=== PATIENT | male | born 1975 | race Hispanic/Latino ===

== ENCOUNTER 2017-10-25 13:31 | Inpatient (IN) | payer OTHER ==
[~2017-10-25] VITALS: Ht 182.9 cm; Wt 105.7 kg
[2017-10-25 14:10] LABS: BASOPHILS % 0.2 % (0.0-1.0); EOSINOPHILS % 0.1 % (0.0-6.0); HEMATOCRIT 47.2 % (38.2-49.6); HEMOGLOBIN 16.8 g/dL (14.0-18.0); LYMPHOCYTES # (AUTO) 1.8 (1.0-3.2); LYMPHOCYTES % 11.5 % (18.0-39.1); MEAN CORPUSCULAR HGB CONC 35.6 g/dL (31-35); MEAN CORPUSCULAR VOLUME 84.3 fL (81-99); MONOCYTES # (AUTO) 0.9 (0.2-0.8); NEUTROPHILS # (AUTO) 12.6 (2.1-6.9); NEUTROPHILS % 81.7 % (38.7-80.0); PLATELET COUNT 249 x10e3/uL (140-360); RED CELL DISTRIBUTION WIDTH 12.4 % (11.7-14.4)
[2017-10-25 14:19] LABS: BILIRUBIN,URINE NEGATIVE (NEGATIVE); CLARITY,URINE CLEAR (CLEAR); COLOR,URINE YELLOW (YELLOW); KETONES,URINE NEGATIVE (NEGATIVE); LEUKOCYTE ESTERASE ,URINE NEGATIVE (NEGATIVE); NITRITE,URINE NEGATIVE (NEGATIVE); PROTEIN,URINE DIPSTICK TRACE (NEGATIVE); URINE UROBILINOGEN 0.2 mg/dL (0.2 - 1)
[2017-10-25 14:25] LABS: ALANINE AMINOTRANSFERASE 17 IU/L (0-55); ALBUMIN 4.5 g/dL (3.5-5.0); ALBUMIN/GLOBULIN RATIO 1.2 (0.8-2.0); ALKALINE PHOSPHATASE 69 IU/L (40-150); ANION GAP 14.7 mmol/L (8-16); BLOOD UREA NITROGEN 14 mg/dL (7-26); BUN/CREATININE RATIO 11 (6-25); CALCIUM 10.2 mg/dL (8.4-10.2); CARBON DIOXIDE 25 mmol/L (22-29); CHLORIDE 103 mmol/L (98-107); CREATININE, SERUM 1.23 mg/dL (0.72-1.25); EST GLOMERULAR FILTRATION RATE > 60 ML/MIN (60-); GLUCOSE 117 mg/dL (74-118); POTASSIUM 3.7 mmol/L (3.5-5.1); SODIUM 139 mmol/L (136-145)
[2017-10-25] MEDS ORDERED: DIATRIZOATE MEGL/DIATRIZOA SOD 30 ML BTL PO ONE (14:53)
[2017-10-25] MEDS ORDERED: SODIUM CHLORIDE 0.9% 1000ML 1,000 ML IV STA (15:00)
[2017-10-25] MEDS ORDERED: ONDANSETRON HCL 4 MG ORAL DISINTEGRATING TAB PO ONE (15:00)
[2017-10-25] MEDS ORDERED: MORPHINE SULFATE 4 MG/ML SYR IV STA (15:00)
[2017-10-25] MEDS ORDERED: SODIUM CHLORIDE 0.9% 1000ML 1,000 ML IV SCH (15:01)
[2017-10-25] MEDS ORDERED: PIPERACILLIN/TAZO 2.25 GM 50 ML IV ONE (15:15)
[2017-10-25] MEDS ORDERED: MORPHINE SULFATE 2 MG/ML SYR ONE (15:42)
[2017-10-25] MEDS ORDERED: VANCOMYCIN 500MG/NS 0.9% 100ML 100 ML IV SCH (16:00)
[2017-10-25] MEDS ORDERED: PIPERACILLIN/TAZO 2.25 GM 50 ML IV SCH (16:00)
--- NOTE | 2017-10-25 17:17 | Diagnostic Imaging Report ---
EXAM: CT Abdomen and Pelvis WITH contrast INDICATION: \S\ABD PAIN RLQ \[id number] \S\1610 \S\N COMPARISON: None. TECHNIQUE: Abdomen and pelvis were scanned utilizing a multidetector helical scanner from the lung base to the pubic symphysis after administration of IV contrast. Coronal and sagittal reformations were obtained. Routine protocol was performed. Scan was performed when during portal venous phase. IV CONTRAST: 100 mL of Isovue-370 ORAL CONTRAST: Water COMPLICATIONS: None RADIATION DOSE: Total DLP: 668.39 mGy*cm Estimated effective dose: (DLP x 0.015 x size factor) mSv CTDIvol has been reviewed. It is below the limits set by the Radiation Protocol Committee (RPC). FINDINGS: LINES and TUBES: None. LOWER THORAX: Unremarkable HEPATOBILIARY: No focal hepatic lesions. No biliary ductal dilation. GALLBLADDER: No radio-opaque stones or sludge. No wall thickening. SPLEEN: No splenomegaly. PANCREAS: No focal masses or ductal dilatation. ADRENALS: No adrenal nodules KIDNEYS/URETERS: Kidneys enhance symmetrically. No hydronephrosis. No cystic or solid mass lesions. No stones. GI TRACT: No abnormal distention, wall thickening, or evidence of bowel obstruction. Dilated appendix up to 1.6 cm. There is a 1.7 cm proximal appendicolith. There are multiple additional tiny appendicoliths in the distal appendix. Minimal periappendiceal inflammation. PELVIC ORGANS/BLADDER: Unremarkable. LYMPH NODES: No lymphadenopathy. Few reactive right lower quadrant mesenteric lymph nodes, measuring up to 0.8 cm. VESSELS: Unremarkable. PERITONEUM / RETROPERITONEUM: No free air or fluid. BONES: Unremarkable. SOFT TISSUES: Unremarkable. IMPRESSION: Findings consistent with acute appendicitis. No evidence of perforation or abscess formation. Dr. Esquivel was notified at 5:12 PM, on 10/25/2017. Signed by: Dr. Ralph Fall MD on 10/25/2017 5:13 PM
[2017-10-25] MEDS ORDERED: PIPER-TAZ 3.375 GM 50 ML IV ONE (17:30)
[2017-10-25] MEDS ORDERED: PROMETHAZINE HCL (IM) 25 MG/ML VIAL IV PRN (18:15)
[2017-10-25] MEDS ORDERED: PROMETHAZINE 12.5MG/ NACL 0.9% 50 ML IV PRN (18:45)
[2017-10-25] MEDS: MORPHINE SULFATE 2 MG/ML SYR IV PRN ×2 (18:55→23:01)
--- OUTSIDE RECORDS SUMMARY | 2017-10-25 19:51 | XMS REPORT ---
Author Author [facility] Address Unknown Phone Unavailable Care Team Providers Care Account Services Associate Name Role Phone DALE ESQUIVEL Unavailable Unavailable Problems This patient has no known problems. Allergies, Adverse Reactions, Alerts This patient has no known allergies or adverse reactions. Medications This patient has no known medications. Results Test Description Test Time Test Comments Text Results Atomic Results Result Comments CT ABDOMEN/PELVIS [facility] [address], [place] [address] Patient Name: DAYANA REICH MR #: [id number] : 1975 Age/Sex: 42/M Req #: [id number] Adm Physician: Ordered by: DALE ESQUIVEL MD Report #: [id number] Location: ER Room/Bed: Procedure: [id number] CT/CT ABDOMEN/PELVIS W Exam Date: 10/25/17 Exam Time: 1610 REPORT STATUS: Signed EXAM: CT Abdomen and Pelvis WITH contrast INDICATION: COMPARISON: None. TECHNIQUE: Abdomen and pelvis were scanned utilizing a multidetector helical scanner from the lung base to the pubic symphysis after administration of IV contrast. Coronal and sagittal reformations were obtained. Routine protocol was performed. Scan was performed when during portal venous phase. IV CONTRAST: 100 mL of Isovue-370 ORAL CONTRAST: Water COMPLICATIONS: None RADIATION DOSE: Total DLP: 668.39 mGy*cm Estimated effective dose: (DLP x 0.015 x size factor) mSv CTDIvol has been reviewed. It is below the limits set by the Radiation Protocol Committee (RPC). FINDINGS: LINES and TUBES: None. LOWER THORAX: Unremarkable HEPATOBILIARY: No focal hepatic lesions. No biliary ductal dilation. GALLBLADDER: No radio-opaque stones or sludge. No wall thickening. SPLEEN: No splenomegaly. PANCREAS: No focal masses or ductal dilatation. ADRENALS: No adrenal nodules KIDNEYS/URETERS : Kidneys enhance symmetrically. No hydronephrosis. No cystic or solid mass lesions. No stones. GI TRACT: No abnormal distention, wall thickening, or evidence of bowel obstruction. Dilated appendix up to 1.6 cm. There is a 1.7 cm proximal appendicolith. There are multiple additional tiny appendicoliths in the distal appendix. Minimal periappendiceal inflammation. PELVIC ORGANS/BLADDER: Unremarkable. LYMPH NODES: No lymphadenopathy. Few reactive right lower quadrant mesenteric lymph nodes, measuring up to 0.8 cm. VESSELS: Unremarkable. PERITONEUM / RETROPERITONEUM: No free air or fluid. BONES: Unremarkable. SOFT TISSUES: Unremarkable. IMPRESSION: Findings consistent with acute appendicitis. No evidence of perforation or abscess formation. Dr. Esquivel was notified at 5:12 PM, on 10/25/2017. Signed by: Dr. Ralph Cortes MD on 10/25/2017 5:13 PM Dictated By: RALPH CORTES MD 12 COPY TO: DALE ESQUIVEL MD
[2017-10-25] MEDS ORDERED: IOPAMIDOL 370 MG/ML 200 ML INFUS..BTL INJ ONE (21:09)
[2017-10-25] MEDS ORDERED: SODIUM CHLORIDE 0.9% 50ML 50 ML ONE (21:10)
[2017-10-25] MEDS: SODIUM CHLORIDE 0.9% 1000ML 1,000 ML IV SCH (21:20)
[2017-10-25 21:27] VITALS: BP 178/71
[2017-10-25 21:30] VITALS: BP 178/71
[2017-10-25] MEDS: ACETAMINOPHEN 325 MG TAB PO PRN (21:59)
[2017-10-25] MEDS: PIPER-TAZ 3.375 GM 100 ML IV SCH (23:53)
[2017-10-26] VITALS (7 sets, daily range): BP systolic 113–137; BP diastolic 57–74
[2017-10-26] MEDS: ACETAMINOPHEN 325 MG TAB PO PRN (04:48)
[2017-10-26] MEDS: SODIUM CHLORIDE 0.9% 1000ML 1,000 ML IV SCH ×3 (05:35→23:23)
[2017-10-26] MEDS: PIPER-TAZ 3.375 GM 100 ML IV SCH ×4 (05:39→23:22)
[2017-10-26 06:55] LABS: BASOPHILS % 0.1 % (0.0-1.0); HEMATOCRIT 42.9 % (38.2-49.6); HEMOGLOBIN 15.1 g/dL (14.0-18.0); LYMPHOCYTES # (AUTO) 1.1 (1.0-3.2); LYMPHOCYTES % 5.2 % (18.0-39.1); MEAN CORPUSCULAR HEMOGLOBIN 30.1 pg (28-32); MEAN CORPUSCULAR HGB CONC 35.2 g/dL (31-35); MEAN CORPUSCULAR VOLUME 85.5 fL (81-99); MONOCYTES # (AUTO) 2.3 (0.2-0.8); MONOCYTES % 10.7 % (4.4-11.3); NEUTROPHILS # (AUTO) 18.3 (2.1-6.9); NEUTROPHILS % 83.5 % (38.7-80.0); PLATELET COUNT 206 x10e3/uL (140-360); RED BLOOD COUNT 5.02 x10e6/uL (4.3-5.7); RED CELL DISTRIBUTION WIDTH 12.7 % (11.7-14.4)
[2017-10-26 07:13] LABS: ALBUMIN 3.4 g/dL (3.5-5.0); ANION GAP 11.8 mmol/L (8-16); CALCIUM 9.3 mg/dL (8.4-10.2); CREATININE, SERUM 1.36 mg/dL (0.72-1.25); POTASSIUM 3.8 mmol/L (3.5-5.1)
[2017-10-26] MEDS ORDERED: BUPIVACAINE 0.25%/EPI 30ML SDV INJ ONE (08:32)
[2017-10-26 09:17] LABS: ANISOCYTOSIS SLIGHT; LYMPHOCYTES % (MANUAL) 3 % (19-48); MONOCYTES % (MANUAL) 10 % (3.4-9.0); MYELOCYTES % (MANUAL) 1 % (0-0); NEUTROPHILS % (MANUAL) 84 % (40-74); PLATELET ESTIMATE ADEQUATE; PLATELET MORPHOLOGY COMMENT NORMAL; RBC MORPHOLOGY COMMENT NORMAL
[2017-10-26] MEDS: PANTOPRAZOLE 40 MG 10ML VIAL IV SCH (10:15)
[2017-10-26] MEDS ORDERED: HYDROCODONE/APAP 7.5MG-325MG 1 EA TAB PO PRN (10:15)
--- NOTE | 2017-10-26 10:56 | Operative Report ---
DATE OF PROCEDURE: October 26, 2017 PREOPERATIVE DIAGNOSIS: Acute appendicitis. POSTOPERATIVE DIAGNOSIS: Acute suppurative appendicitis. OPERATION PERFORMED: Laparoscopic appendectomy. ANESTHESIA: General. COMPLICATIONS: None. ESTIMATED BLOOD LOSS: Minimal. DESCRIPTION OF PROCEDURE: With the patient lying in bed in the supine position under good general endotracheal anesthesia, the abdomen was prepped with Betadine solution and draped in the usual manner. Veress needle was introduced into the umbilicus. Pneumoperitoneum was established without any difficulty. A 12-mm trocar was placed into the umbilicus. A 10 mm video laparoscope was placed into the intra-abdominal cavity. Under direct vision, a 5-mm trocar was placed in the suprapubic region and another 5-mm trocar was placed in the left lower abdomen. Video laparoscopy revealed an acutely inflamed suppurative appendicitis. The appendix was starting to show some gangrenous changes, but it was not perforated. It was stuck to the lateral wall on the anterior abdominal wall thus explaining the pain that the patient was having. There was no intra-abdominal abscess present. The appendix was mobilized off of the lateral gutter. The mesentery of the appendix was then divided with an application of the LUIS MIGUEL vascular stapler. The base of the appendix was divided with an application of the endo-LUIS MIGUEL stapler. The appendix was placed in a pouch and removed through the umbilical port. Video laparoscopy was then again carried out. Perfect hemostasis was ascertained. The whole area was then thoroughly irrigated. All of the fibrinous material was aspirated and all the excess fluid was aspirated. The fluid was totally aspirated, and the pneumoperitoneum was then evacuated. All the trocars were removed under direct vision. The midline fascia at the umbilicus was then closed with a figure-of-8 of 0 Vicryl. All layers were infiltrated on the way out with a solution of 0.25% Marcaine. Subcutaneous tissue was approximated with 3-0 Vicryl and the skin was closed with subcuticular 5-0 Vicryl. Benzoin, Steri-Strips and Band-Aids were applied. The sponge, lap and needle count was correct. The patient tolerated the procedure well, and returned to the recovery room in stable condition. Job#: [id number] ID
[2017-10-26] MEDS: METRONIDAZOLE 500MG/NS 100ML 100 ML IV SCH ×2 (13:20→17:45)
[2017-10-26] MEDS ORDERED: PROPOFOL IV EMULSION 10 MG/ML 20 ML VIAL ONE (18:59)
[2017-10-26] MEDS ORDERED: ONDANSETRON HCL INJ 2 MG/ML VIAL ONE (18:59)
[2017-10-26] MEDS ORDERED: GLYCOPYRROLATE INJ 1MG/ 5 ML SYR ONE (18:59)
[2017-10-26] MEDS ORDERED: NEOSTIGMINE 5 MG/5ML SYR ONE (18:59)
[2017-10-26] MEDS ORDERED: DEXAMETHASONE SOD PHOS INJ 4 MG/ML VIAL ONE (18:59)
[2017-10-26] MEDS ORDERED: FENTANYL CITRATE/PF 100MCG/2 ML INJ ONE (18:59)
[2017-10-26] MEDS ORDERED: SEVOFLURANE INHAL SOLN 250 ML PEN BTL ONE (18:59)
[2017-10-26] MEDS ORDERED: ACETAMINOPHEN 1000 MG/100 ML IV ONE (18:59)
[2017-10-26] MEDS ORDERED: LIDOCAINE HCL 2% LOCAL INJ 5 ML SDV VIAL INJ ONE (18:59)
[2017-10-26] MEDS ORDERED: ROCURONIUM BROMIDE 10 MG/ML 5ML VIAL ONE (18:59)
[2017-10-26] MEDS ORDERED: MIDAZOLAM HCL 2 MG/2 ML VIAL ONE (18:59)
[2017-10-27] MEDS: METRONIDAZOLE 500MG/NS 100ML 100 ML IV SCH ×2 (00:09→06:48)
[2017-10-27] MEDS: SODIUM CHLORIDE 0.9% 1000ML 1,000 ML IV SCH ×2 (02:13→10:17)
[2017-10-27 04:00] VITALS: BP 106/58
[2017-10-27] MEDS: PIPER-TAZ 3.375 GM 100 ML IV SCH ×3 (05:22→18:00)
[2017-10-27 07:21] LABS: BASOPHILS % 0.1 % (0.0-1.0); EOSINOPHILS % 0.2 % (0.0-6.0); HEMATOCRIT 42.7 % (38.2-49.6); HEMOGLOBIN 14.5 g/dL (14.0-18.0); LYMPHOCYTES # (AUTO) 1.6 (1.0-3.2); MEAN CORPUSCULAR HEMOGLOBIN 29.8 pg (28-32); MEAN CORPUSCULAR VOLUME 87.7 fL (81-99); MONOCYTES # (AUTO) 1.1 (0.2-0.8); MONOCYTES % 7.6 % (4.4-11.3); NEUTROPHILS % 80.5 % (38.7-80.0); PLATELET COUNT 204 x10e3/uL (140-360); RED BLOOD COUNT 4.87 x10e6/uL (4.3-5.7); RED CELL DISTRIBUTION WIDTH 12.8 % (11.7-14.4)
[2017-10-27 07:30] VITALS: BP 113/56
[2017-10-27 07:51] LABS: ANION GAP 10.7 mmol/L (8-16); BLOOD UREA NITROGEN 13 mg/dL (7-26); BUN/CREATININE RATIO 12 (6-25); CALCIUM 9.5 mg/dL (8.4-10.2); CARBON DIOXIDE 26 mmol/L (22-29); CHLORIDE 105 mmol/L (98-107); CREATININE, SERUM 1.13 mg/dL (0.72-1.25); EST GLOMERULAR FILTRATION RATE > 60 ML/MIN (60-); GLUCOSE 115 mg/dL (74-118); POTASSIUM 3.7 mmol/L (3.5-5.1); SODIUM 138 mmol/L (136-145)
[2017-10-27] MEDS: PANTOPRAZOLE 40 MG 10ML VIAL IV SCH (09:23)
[2017-10-27 12:48] VITALS: BP 121/62
[2017-10-27 15:19] VITALS: BP 113/56
[2017-10-27 16:21] VITALS: BP 119/63
== END 2017-10-27 19:29 | disposition home or self-care (01) | DRG 343 ==
LOC: ER 13:31 → ERHOLD 15:01 → IMCU 20:54 → OBSVTOIN 10-26 17:30 → MED/SURG 10-26 17:49
PROVIDERS: ADMIT Internal Medicine; ATTEND Internal Medicine
PROC: 0DTJ4ZZ Resection of Appendix, Percutaneous Endoscopic Approach (ICD-10-PCS; principal; 2017-10-26 09:30)
DX: K37 Unspecified appendicitis (principal)
CPT/HCPCS: 36415; 74177; 80048; 80053; 81001; 85025; 88304; 93005; 99284; C1766; G0378; J1100; J2001; J2250; J2270; J2405; J2543; J2550; J3370; J7030; Q9967